=== PATIENT | female | born 1960 | race Caucasian/White ===

== ENCOUNTER 2024-06-23 15:45 | Outpatient (CLI) | payer MEDICAID ==
[2024-06-23 16:36] LABS: BASOPHILS % (AUTO) 0.5 % (0-1); EOSINOPHILS # (AUTO) 0.1 X10'3 (0-0.9); HEMATOCRIT 38.5 % (35.0-45.0); HEMOGLOBIN 13.3 g/dl (12.0-16.0); LYMPHOCYTES # (AUTO) 1.2 X10'3 (1.1-4.8); LYMPHOCYTES % (AUTO) 19.2 % (21-51); MEAN CORPUSCULAR HEMOGLOBIN 34.5 PG (27.0-31.0); MEAN CORPUSCULAR HGB CONC 34.4 g/dL (33.0-36.5); MEAN CORPUSCULAR VOLUME 100.2 FL (78-98); MEAN PLATELET VOLUME 9.1 FL (7.4-10.4); MONOCYTES # (AUTO) 0.3 X10'3 (0-0.9); MONOCYTES % (AUTO) 4.4 % (2-12); NEUTROPHILS # (AUTO) 4.7 X10'3 (1.8-7.7); NEUTROPHILS % (AUTO) 74.9 % (42-75); PLATELET COUNT 178 X10'3 (140-440); RED BLOOD COUNT 3.84 X10'6 (4.20-5.60); RED CELL DISTRIBUTION WIDTH 13.5 % (11.5-14.5); WHITE BLOOD COUNT 6.3 X10'3 (4.5-11.0)
[2024-06-23 16:38] LABS: BILIRUBIN,URINE NEGATIVE (Neg); CLARITY,URINE CLEAR (Clear); COLOR,URINE YELLOW (Yellow); GLUCOSE, URINE NEGATIVE (Neg); KETONES,URINE NEGATIVE (Neg); LEUKOCYTE ESTERASE ,URINE SMALL (Neg); NITRITES, URINE NEGATIVE (Neg); OCCULT BLOOD,URINE NEGATIVE (Neg); PH,URINE 5.5 (4.8-8.0); PROTEIN,URINE NEGATIVE (Neg); UROBILINOGEN,URINE 0.2 E.U/dL (0.2-1.0)
[2024-06-23 16:43] LABS: UA COLLECTION TYPE CONDOM CATH
[2024-06-23 16:45] LABS: BACTERIA,URINE FEW /HPF (Neg); RBC,URINE 0-2 /HPF (0-2); SQUAMOUS EPITHELIAL CELL,UR FEW /LPF (FEW); WBC CLUMPS,URINE FEW /HPF (NEGATIVE); WBC,URINE 20-30 /HPF (0-4)
[2024-06-23 17:04] LABS: ALANINE AMINOTRANSFERASE 24 U/L (12-78); ALBUMIN 4.3 G/DL (3.4-5.0); ALBUMIN/GLOBULIN RATIO 1.2 (1.1-1.5); ALKALINE PHOSPHATASE 124 IU/L (46-116); ANION GAP 7 (8-16); ASPARTATE AMINO TRANSFERASE 19 U/L (10-37); BILIRUBIN,TOTAL 0.3 MG/DL (0.1-1.0); BLOOD UREA NITROGEN 14 MG/DL (7-18); BUN/CREATININE RATIO 17.3 (10.0-20.0); CALCIUM 9.4 MG/DL (8.5-10.1); CHLORIDE 102 MMOL/L (99-107); CHOL/HDL RATIO 3.6 (0.00-4.99); CHOLESTEROL 205 MG/DL (0-200); CREATININE 0.81 MG/DL (0.40-0.90); FREE T4 (FREE THYROXINE) 1.07 NG/DL (0.73-1.40); GLUCOSE 88 MG/DL (70-104); HDL CHOLESTEROL 57 MG/DL (35-60); LDL CHOLESTEROL 112 MG/DL (50-100); POTASSIUM 3.7 MMOL/L (3.5-5.1); SODIUM 140 MMOL/L (135-145); THYROID STIMULATING HORMONE 1.12 ulU/ml (0.34-4.50); TOTAL CARBON DIOXIDE 31.2 MMOL/L (24-32); TOTAL PROTEIN 7.9 G/DL (6.4-8.2); TRIGLYCERIDES 116 MG/DL (20-135); eGFR 71 ML/MIN
[2024-06-24 11:46] LABS: OCCULT BLOOD STOOL NEGATIVE (Neg)
== END 2024-06-23 23:59 | disposition home or self-care (01) ==
LOC: RAD 15:45
PROVIDERS: ATTEND Nurse Practitioner Family
DX: E03.9 Hypothyroidism, unspecified (principal); E55.9 Vitamin D deficiency, unspecified; K58.2 Mixed irritable bowel syndrome; R42 Dizziness and giddiness
CPT/HCPCS: 36415; 80053; 80061; 81001; 82272; 82607; 83036; 84425; 84439; 84443; 85025; 85651; 87088

== ENCOUNTER 2024-11-17 15:33 | Outpatient (CLI) | payer MEDICAID ==
[2024-11-17 16:26] LABS: BASOPHILS # (AUTO) 0.1 X10'3 (0-0.2); EOSINOPHILS # (AUTO) 0.1 X10'3 (0-0.9); HEMATOCRIT 38.4 % (35.0-45.0); HEMOGLOBIN 13.1 g/dl (12.0-16.0); LYMPHOCYTES # (AUTO) 1.3 X10'3 (1.1-4.8); LYMPHOCYTES % (AUTO) 22.3 % (21-51); MEAN CORPUSCULAR HEMOGLOBIN 33.2 PG (27.0-31.0); MEAN CORPUSCULAR HGB CONC 34.1 g/dL (33.0-36.5); MEAN CORPUSCULAR VOLUME 97.4 FL (78-98); MEAN PLATELET VOLUME 9.5 FL (7.4-10.4); MONOCYTES # (AUTO) 0.3 X10'3 (0-0.9); MONOCYTES % (AUTO) 4.9 % (2-12); NEUTROPHILS # (AUTO) 4.2 X10'3 (1.8-7.7); NEUTROPHILS % (AUTO) 70.8 % (42-75); PLATELET COUNT 131 X10'3 (140-440); RED BLOOD COUNT 3.94 X10'6 (4.20-5.60); RED CELL DISTRIBUTION WIDTH 13.4 % (11.5-14.5); WHITE BLOOD COUNT 5.9 X10'3 (4.5-11.0)
[2024-11-17 16:32] LABS: BILIRUBIN,URINE NEGATIVE (Neg); CLARITY,URINE SLIGHTLY CLOUDY (Clear); COLOR,URINE YELLOW (Yellow); GLUCOSE, URINE NEGATIVE (Neg); KETONES,URINE NEGATIVE (Neg); LEUKOCYTE ESTERASE ,URINE SMALL (Neg); NITRITES, URINE NEGATIVE (Neg); OCCULT BLOOD,URINE NEGATIVE (Neg); PROTEIN,URINE NEGATIVE (Neg); UROBILINOGEN,URINE 0.2 E.U/dL (0.2-1.0)
[2024-11-17 16:33] LABS: UA COLLECTION TYPE CLN CATCH MIDSTREAM
[2024-11-17 16:47] LABS: ALANINE AMINOTRANSFERASE 26 U/L (12-78); ALBUMIN 4.2 G/DL (3.4-5.0); ALBUMIN/GLOBULIN RATIO 1.2 (1.1-1.5); ALKALINE PHOSPHATASE 118 IU/L (46-116); ANION GAP 8 (8-16); ASPARTATE AMINO TRANSFERASE 26 U/L (10-37); BILIRUBIN,TOTAL 0.3 MG/DL (0.1-1.0); BLOOD UREA NITROGEN 20 MG/DL (7-18); BUN/CREATININE RATIO 17.9 (10.0-20.0); CHLORIDE 100 MMOL/L (99-107); CHOL/HDL RATIO 3.7 (0.00-4.99); CHOLESTEROL 226 MG/DL (0-200); CREATININE 1.12 MG/DL (0.40-0.90); FREE T4 (FREE THYROXINE) 0.99 NG/DL (0.73-1.40); GLUCOSE 88 MG/DL (70-104); HDL CHOLESTEROL 61 MG/DL (35-60); LDL CHOLESTEROL 129 MG/DL (50-100); POTASSIUM 4.1 MMOL/L (3.5-5.1); SODIUM 137 MMOL/L (135-145); THYROID STIMULATING HORMONE 1.97 ulU/ml (0.34-4.50); TOTAL CARBON DIOXIDE 29.4 MMOL/L (24-32); TOTAL PROTEIN 7.8 G/DL (6.4-8.2); TRIGLYCERIDES 91 MG/DL (20-135); eGFR 49 ML/MIN
[2024-11-17 16:54] LABS: BACTERIA,URINE 1+ /HPF (Neg); RBC,URINE 0-2 /HPF (0-2); RENAL CELLS, URINE FEW /HPF; SQUAMOUS EPITHELIAL CELL,UR MODERATE /LPF (FEW); WBC CLUMPS,URINE FEW /HPF (NEGATIVE); YEAST FEW /HPF (NEGATIVE)
== END 2024-11-17 23:59 | disposition home or self-care (01) ==
LOC: LAB 15:33
PROVIDERS: ATTEND Nurse Practitioner Family
DX: E66.9 Obesity, unspecified (principal); E55.9 Vitamin D deficiency, unspecified; H54.3 Unqualified visual loss, both eyes; E03.9 Hypothyroidism, unspecified; K21.9 Gastro-esophageal reflux disease without esophagitis; K58.2 Mixed irritable bowel syndrome; M35.1 Other overlap syndromes; M54.17 Radiculopathy, lumbosacral region; M65.4 Radial styloid tenosynovitis [de Quervain]; N18.30 Chronic kidney disease, stage 3 unspecified; N39.0 Urinary tract infection, site not specified; E06.9 Thyroiditis, unspecified
CPT/HCPCS: 36415; 80053; 80061; 81001; 82306; 82607; 82746; 83036; 84439; 84443; 85025; 87088

== ENCOUNTER 2025-01-01 15:14 | Inpatient (IN) | payer MEDICAID ==
[~2025-01-01] VITALS: Ht 175.3 cm; Wt 63.6 kg
--- NOTE | 2025-01-01 15:23 | ELECTROCARDIOGRAPH REPORT ---
[facility] Test Date: 2025-01-01 Test Time: 15:19:48 Pat Name: ANDI KUMARI Department: EMERGENCY ROOM Room: ED 7 Gender: F Paper Grader: VEE : 1960 Requested By: MANAS RIVERA Order Number: [id number] Reading MD: Dr. Bhupinder Griffin Measurements Intervals [place] Rate: 89 P: 86 GA: 134 QRS: 75 QRSD: 79 T: 73 QT: 378 QTc: 460 Interpretive Statements Sinus rhythm Consider left ventricular hypertrophy Baseline wander in lead(s) V6 Electronically Signed On 01-01-2025 18:25:[address] Bhupinder Griffin Please click the below link to view image of tracing.
[2025-01-01 16:00] LABS: MEAN PLATELET VOLUME 9.6 FL (7.4-10.4); RED CELL DISTRIBUTION WIDTH 12.9 % (11.5-14.5)
--- NOTE | 2025-01-01 16:03 | RADIOLOGY REPORT ---
EXAM: DI CHEST,SINGLE VIEW TECHNIQUE: Single frontal chest radiograph CLINICAL HISTORY: CP COMPARISON: None Findings/Impression: Frontal chest radiograph demonstrates no acute osseous or superficial soft tissue abnormalities. Calc ified bilateral breast implants. The trachea is midline. The cardiac silhouette and mediastinum are within normal limits. No pneumothorax, pleural effusions, or consolidations.
[2025-01-01 16:21] LABS: CREATININE 1.30 MG/DL (0.40-0.90); PRO BRAIN NATRIURETIC PEPTIDE 165 PG/ML (0-125); TOTAL CARBON DIOXIDE 28.9 MMOL/L (24-32); eCRCL 45 ML/MIN; eGFR 41 ML/MIN
--- NOTE | 2025-01-01 16:23 | Physician Documentation ---
History of Present Illness ~ Chief Complaint: Chest Pain Stated Complaint: CP Time Seen by MD: 15:42 HPI History year old female presents today with a complaint of chest pain for the last four days for she states she started breath however she is describing her pain in 7-10 word without difficulty. States that the the pain is sharp in nature and is worse with inspiration.. Adds that the pain is worse with movement torsional. Said the pain is on the left side does not radiate or move Additional note by Jj Rivera, DO: I took over the care of this patient from previous physician. I reviewed any previous notes available, obtain my own history, review of systems and physical examination was performed by myself. This is a very pleasant 64-year-old female with a prior medical history of myocardial infarction, cardiac arrest, lupus, who comes in for evaluation of pleuritic left-sided chest pain radiating to her shoulder. Not certain if it is exertional. Not accompanied by shortness a breath. Did not attempt to treat it. Has been intermittently present for the last four days, and got progressively worse. She came in today because the pain was so bad that it finally scared her. Denies use of tobacco, alcohol or illicit substances. Day of Onset: Jan 01, 2025 Medication Reconciliation Allergies: Coded Allergies: Penicillins (Verified Allergy, Unknown, 01/01/25) erythromycin base (Verified Allergy, Unknown, 01/01/25) metronidazole (Verified Allergy, Unknown, 01/01/25) Review of Systems All Other Systems at this time: Reviewed and Negative ROS As stated above in the HPI, otherwise all systems are reviewed and negative. Physical Exam Vital Signs: Temperature: 98.5, Source: Temporal, Heart Rate: 70, Respiratory Rate: 10, BP: 110/73, Pulse Oximetry: 98, Weight: 63.640 Oxygen Flow Rate: 0 Physical Exam General: Alert, no apparent distress. HEENT: PERRL, EOMI, no injection, moist mucous membranes. Neck: Full range of motion. Respiratory: Lungs clear, no respiratory distress. Chest: No accessory muscle use. Cardiovascular: Regular rate and rhythm, no murmurs. Gastrointestinal: Soft, nontender, nondistended. Bowels sounds present. Extremities: Normal range of motion, no deformity. Neurologic: Oriented x4. Psychiatric: Normal mood and affect. Skin: Normal color, warm and dry. No edema, no ecchymosis. Progress Results/Orders Results/Orders Orders - JJ RIVERA DO Chest,Single View (01/01/25 15:21) Monitor (01/01/25 15:21) Saline Lock (01/01/25 15:21) Oxygen (01/01/25 15:21) Hs Troponin I W Calculations (01/01/25 17:21) Hs Troponin I W Calculations (01/01/25 18:21) Completed Orders - JJ RIVERA DO Chest,Single View (01/01/25 15:21) Cbc/Diff (01/01/25 15:21) BMP (01/01/25 15:21) PBNP (01/01/25 15:21) Electrocardiogram (01/01/25 15:21) Hs Troponin I W Calculations (01/01/25 15:21) Vital Signs 01/01/25 01/01/25 01/01/25 15:19 15:44 17:08 Temp 98.5 Pulse 102 70 Resp 18 10 10 B/P (MAP) 118/71 110/73 (85) Pulse Ox 98 98 O2 Flow Rate 0 Laboratory Tests Test 01/01/25 15:54 White Blood Count 6.3 Red Blood Count 3.70 L Hemoglobin 12.2 Hematocrit 35.9 Mean Corpuscular Volume 96.9 Mean Corpuscular Hemoglobin 33.1 H Mean Corpuscular Hemoglobin Concent 34.1 Red Cell Distribution Width 12.9 Platelet Count 123 L Mean Platelet Volume 9.6 Neutrophils (%) (Auto) 65.4 Lymphocytes (%) (Auto) 25.4 Monocytes (%) (Auto) 7.6 Eosinophils (%) (Auto) 1.0 Basophils (%) (Auto) 0.6 Neutrophils # (Auto) 4.1 Lymphocytes # (Auto) 1.6 Monocytes # (Auto) 0.5 Eosinophils # (Auto) 0.1 Basophils # (Auto) 0.0 CBC Comment Sodium Level 137 Potassium Level 3.7 Chloride Level 102 Carbon Dioxide Level 28.9 Anion Gap 6 L Blood Urea Nitrogen 22 H Creatinine 1.30 H Estimated GFR/1.73 m2 41 BUN/Creatinine Ratio 16.9 Glucose Level 98 Calcium Level 9.2 Troponin I High Sensitivity 5 Pro-B-Type Natriuretic Peptide 165 H Albumin 4.2 Chemistry Comments EKG/XRAY/CT/US/VASC/MRI EKG : Additional Comment EKG was obtained and interpreted by myself shows sinus rhythm of 89, normal AL interval, narrow QRS, no QT prolongation, normal axis, concern for LVH. No STEMI. T-wave inversion in aVL. Heart Score: Heart Score Response (Comments) Value History Slightly Suspicious 0 EKG Repolarization Disturb 1 Age 45-64 1 Risk Factors >3 or Hx ASHD 2 Troponin Normal limit 0 Total 4 Medical Decision Making Findings Facility Status: ED Holds, RME process The plan was discussed with the patient, who demonstrates clear understanding of the plan and is in agreement with the plan unless otherwise noted in the chart. All questions have been answered, all concerns were addressed unless otherwise documented. I was available throughout their ED stay for frequent reassessment and questions. Differential Diagnoses (considered and possible or likely): [Differential diagnosis considered includes chest wall pain, pleurisy, pneumonia, pulmonary embolus, GERD, esophagitis, gastritis, anxiety, stress reaction, costoc hondritis, acute coronary syndrome, aortic dissection, pericarditis, myocarditis, or pneumothorax.] ??Differential Diagnoses (considered and unlikely, not requiring evaluation currently): [Aortic/great vessels dissection was considered but it is unlikely based on absence of ripping, tearing, migratory chest pain, absence of syncope or focal neurologic deficits, physical examination indicating equal and symmetric pulses.] MDM Data Please see [facility] for the following: Independent Historians and external Records Review. Historian: [Patient] Independent Historians: ?[, record review] Medication Management: [Reviewed medication list] Social History and determinants: [Reviewed] Please see the body of the note for the following: Any independent interpretations of ECG, imaging studies. All vitals signs/haemodynamics, ordered tests were independently reviewed and interpreted by myself. Nursing triage complaint and vitals reviewed, additional nursing notes were reviewed as available and I agree unless otherwise noted or documented in contradiction in the chart Vital Signs: Independently reviewed Labs: Independently interpreted Imaging: Independently interpreted Old Medical Records: Independently reviewed, see [facility] for relevant summary and information Pulse Oximetry: [97%] interpreted as [normal on room air] by me [Hotel Dining Room Cashier: [Regular Rate, Regular rhythm, no ectopy, NSR] reviewed and interpreted by me] Additionally notably showing: [Hemodynamics reviewed. The patient has a initially tachycardic, not febrile, no evidence of respiratory distress or hypotension. CBC is normal. Slightly decreased platelet count noted. Does not require transfusion, no evidence of active bleeding. Chemistry notable for mild MIRA versus CKD. Slight elevation of BNP not meeting criteria for CHF exacerbation. Initial troponin is normal. Chest x-ray was obtained showing no acute cardiopulmonary process. Breast im plants noted.] Tests considered but not ordered include: [Stress test and echo can be done on an inpatient basis, patient has not had any cardiac workup in over two years] Social Determinants of Health Impact: Patient was evaluated in [facility], [facility] [place] to healthcare due to below par ratio of patient to medical providers. [] Comorbid Conditions Impacting Present Evaluation and Care/Treatment: [History of myocardial infarction and cardiac arrest] Management Discussions with other Healthcare Providers: [Hospitalist regarding admission] Treatment and Disposition Medication Management (Given or considered): []. See EMR for details Consideration for Hospitalization/Escalation/Deescalation of Care: Admission for observation has been considered, and appears to be necessary for further workup of her chest pain given her risk factors. ?ED Course:?[No clinical deterioration] ?Shared decision making:?[] Code status:?FULL Please see the full Electronic Medical Record for full details of nursing documentation, medications list, other records of complete past medical history and conditions, vital signs, laboratory studies, and any radiologic study interpretations by radiologists. Portions of this note were completed using [employer] dictation software and as a result there may exist minor errors in spelling. I have reviewed elements of past family and social history and agree as included in note. Differential Dx:Considerations: Include: angina, aortic dissection, chest wall pain, cholelithiasis, CHF, costochondritis, esophageal reflux/spasm, gastritis, herpes zoster, myocardial infarction, pericarditis, pleuritis, pancreatitis, pneumonia, pneumothorax, pulmonary embolus, other Departure Disposition: 09 ADMITTED INPATIENT Impression: Primary Impression: Acute chest pain Additional Impressions: History of lupus History of myocardial infarction History of cardiac arrest Condition: Stable Discharge Instructions: Nonspecific Chest Pain, Adult, Chest Wall Pain Referrals: NO PRIMARY CARE PROVIDER (PCP) Education Educated: Patient, Family Educated regarding: diagnosis, treatment, prognosis, need for follow up Signature Scribe Signature: No scribe Attestation: This note accurately reflects clinical decisions, work performed by myself, Jj Rivera, TONI WILLETT NP Jan 01, 2025 16:23 JJ RIVERA DO Jan 01, 2025 17:29
[2025-01-01] MEDS ORDERED: magnesium hydroxide 30ml (MOM) UD suspension PO PRN (18:40)
[2025-01-01] MEDS ORDERED: potassium Cl 40MEQ/1/2NS 520ml 520 ML IV PRN (18:40)
[2025-01-01] MEDS ORDERED: magnesium sulf-water 4G/100mL 100 ML IV PRN (18:40)
[2025-01-01] MEDS ORDERED: ondansetron/PF 4mg/2ml inj IV PRN (18:40)
[2025-01-01] MEDS ORDERED: magnesium Cl slow-release 64mg tablet PO PRN (18:40)
[2025-01-01] MEDS ORDERED: magnesium sulf-water 2g/50mL 50 ML IV PRN (18:40)
[2025-01-01] MEDS ORDERED: potassium Cl 20 mEq SR tablet PO PRN ×2 (18:40)
[2025-01-01] MEDS ORDERED: metoprolol tartrate 1mg/ml inj IV PRN (18:45)
[2025-01-01] MEDS ORDERED: aminophylline 250mg/10ml inj. IV PRN (18:45)
--- NOTE | 2025-01-01 19:03 | HISTORY AND PHYSICAL-Residence ---
History & Physical Providers to CC Resident Creating Document: SHANE HULL, SILVIA ~ History of Present Illness Reason for Admit\\Complaint: Anginal chest pain History of Present Illness 64-year-old female with past medical history of complete blindness, SLE, hypothyroidism, peripheral neuropathy, GERD, anxiety presented to the ED with chief complaints of worsening left-sided chest pain since the past four days. The patient reports that she has been having intermittent episode of chest pain that is mostly towards the left side of the chest, pressure type and radiating to the left shoulder and the left jaw. She reports that the chest pain increases with minimal exertion and mildly improves with rest. She denies complete resolution of the chest pain with the rest. The patient also reported that she has been having worsening of the symptoms and the duration of the symptoms has been progressively increasing. She stated that she also has a associated shortness of breaths, reports that she was initially able to walk for longer distances with her walker but since the past few days the patient has been having severe shortness of breaths even taking 50 steps with a walker. She also reported that she has been feeling that she has a generalized swelling in her legs, arms and all around her back since the past few days associated with the these chest pains. She complains of generalized body aches, tingling and numbness in all four of her extremities peripherally. PCP- CLAIRE Pedro, [place] [facility] Stitching Machine Feeder Or Offbearer-Dr. Carrion Code status-full code Allergies: Coded Allergies: Penicillins (Verified Allergy, Unknown, 01/01/25) erythromycin base (Verified Allergy, Unknown, 01/01/25) metronidazole (Verified Allergy, Unknown, 01/01/25) Past Medical History Past Medical History Complete blindness Easily Hypothyroidism Peripheral neuropathy GERD Anxiety "Heart attack" no stenting or intervention done in the past. Past Surgical History Surgical History Comment Multiple ophthalmology surgeries for recurrent glaucoma/uveitis. Family History Family History: FH: blindness Past Social History Social History Comment Lives at home with her boyfriend. Denies smoking Occasionally drinks alcohol. Denies recreational drug use ROS All Other Systems: Reviewed and Negative ROS CONSTITUTIONAL: Worsening generalized weakness. No weight loss or weight gain recently. EYES: Complete blindness, photosensitivity ENT: No sore throat, No epistaxis. No tinnitus. CARDIOVASCULAR: Anginal chest pain as described in the HPI RESPIRATORY: Shortness of breaths worsening with minimal exertion GASTROINTESTINAL: Normal appetite. No nausea, vomiting, diarrhea. No constipation. No hematemesis. No abdominal pain. No bloating. No melena or fresh blood. GENITOURINARY: No frequency, urgency, nocturia. No hematuria or dysuria. MUSCULOSKELETAL: Generalized significant arthralgias and myalgias. INTEGUMENTARY: no change in skin, hair, nails. No swelling. No bruising. No abrasions. NEUROLOGIC: Headaches associated with the chest pain. Tingling and numbness in all four extremities peripherally. PSYCHIATRIC: no delusions, no depression, no loss of interest in normal activity or change in sleep pattern, no hallucinations or suicidal ideations HEMATOLOGICAL: No bleeding. No petechiae. No bruising. Exam Vitals: Vital Signs Date Time Temp Pulse Resp B/P (MAP) Pulse Ox O2 Delivery O2 Flow Rate FiO2 01/01/25 17:45 78 12 116/68 (84) 98 01/01/25 15:19 98.5 0 General: General: Awake and Alert, no acute distress. HEENT: Completely blind, bilateral corneal opacities, Mucus Membranes moist. Neck: Supple without masses and tenderness. Resp: Unlabored. Lungs clear to auscultation bilaterally. Heart: Regular Rate and rhythm, normal S1 and S2 without murmur, rub or gallop. Abdomen: Soft and non tender no organomegaly Extremities: No cyanosis,clubbing or edema. Skin: Warm and Dry. Neurology: No other focal motor or sensory deficits. Diagnostic Data Last Recorded Lab Results: 01/01/25 1554 01/01/25 1554 Advance Care Planning Advanced Care planning: Add on additional 30 min Additional Plan Anginal chest pain Rule out ACS Heart score-low risk. EKG negative for any acute ST segment elevations. Troponin one high sensitivity-five, five. Third troponin pending. Chest [id number] for any acute findings. Telemetry monitoring to be done to check for any underlying arrhythmias. Patient took four tablets of aspirin 81 mg at home prior to coming to the hospital. She took nitroglycerin at home without significant improvement. We will do a Doris stress test tomorrow in the a.m.. We will follow up accordingly as per the Doris report. Follow up with the A1c, TSH. Follow up with the lipid panel. Follow up with the ECHO. Mild MIRA on CKD Started the patient on IV fluids. Monitor the patient's renal function test and manage accordingly. SLE Peripheral neuropathy Hypothyroidism Chronic pain Complete blindness GERD Anxiety Insomnia Awaiting med reconciliation. Restart home medications once med reconciliation is done and reviewed. CODE STATUS: Full code DVT prophylaxis: Heparin 5000 units subQ b.i.d. Diet: NPO after midnight. Disposition: The patient we will get a Doris stress test done tomorrow. Telemetry monitoring to be done. Admitting the patient for observation to rule out ACS. Shane Hull MD Internal Medicine Resident, PGY-2 Date of Service: Jan 01, 2025 Billing Provider: DESIREE THAO MD Common Visit Codes: 51704-[id number] INP/OBS CARE (HIGH) Secondary Visit Codes: 97286-[id number] CARE PLAN 30 MINUTES SHANE HULL, RES Jan 01, 2025 19:03 DESIREE THAO MD Jan 01, 2025 19:52
[2025-01-01] MEDS: normal saline 1000ml 1,000 ML IV SCH (19:19)
[2025-01-01 19:23] LABS: CHOL/HDL RATIO 3.2 (0.00-4.99); LDL CHOLESTEROL 121 MG/DL (50-100)
[2025-01-01] MEDS ORDERED: VALA500T41 PO (19:27)
[2025-01-01] MEDS ORDERED: PANT40TA54 PO (19:27)
[2025-01-01] MEDS ORDERED: FAMO20TA8 PO (19:27)
[2025-01-01] MEDS ORDERED: CLON0.5T4 PO (19:27)
[2025-01-01] MEDS ORDERED: DICY10CA88 PO (19:27)
[2025-01-01] MEDS ORDERED: ROSU10TA72 PO (19:27)
[2025-01-01] MEDS ORDERED: LEVO75TA7 PO (19:27)
[2025-01-01] MEDS ORDERED: GABA300T28 PO (19:27)
[2025-01-01] MEDS ORDERED: TRAZ-256 PO (19:27)
[2025-01-01] MEDS ORDERED: AZEL6DRO5 EACHEYE (19:28)
[2025-01-01] MEDS ORDERED: LORA10TA7 PO (19:29)
[2025-01-01] MEDS: docusate sod 100mg capsule PO SCH (20:00)
[2025-01-01 21:20] VITALS: BP 120/70; PULSE 97; RESP 17; TEMP 98.5; O2SAT 97
[2025-01-01] MEDS: K and/or MAG REPLACEMENT MC SCH (21:20)
[2025-01-01] MEDS: heparin, porcine 5000 units/ml vial SQ SCH (21:20)
[2025-01-02] VITALS (13 sets, daily range): BP systolic 93–130; BP diastolic 45–72; PULSE 63–92; RESP 15–16; TEMP 98–98.4; O2SAT 96–100
[2025-01-02 06:27] LABS: MEAN PLATELET VOLUME 9.9 FL (7.4-10.4); RED CELL DISTRIBUTION WIDTH 13.0 % (11.5-14.5)
[2025-01-02 07:05] LABS: CREATININE 0.87 MG/DL (0.40-0.90); TOTAL CARBON DIOXIDE 27.2 MMOL/L (24-32); eCRCL 66 ML/MIN; eGFR 66 ML/MIN
--- NOTE | 2025-01-02 08:58 | ELECTROCARDIOGRAPH REPORT ---
[facility] Test Date: 2025-01-01 Test Time: 17:56:31 Pat Name: ANDI KUMARI Department: EMERGENCY ROOM Room: [facility] [address] Gender: F Research Group Director: VEE : 1960 Requested By: DEPARTMENT EMERGENCY Order Number: [id number] Reading MD: Dr. Bhupinder Griffin Measurements Intervals [place] Rate: 83 P: 0 [place]: 0 QRS: 67 QRSD: 90 T: 67 QT: 404 QTc: 475 Interpretive Statements Atrial fibrillation Electronically Signed On 01-02-2025 19:43:[address] Bhupinder Griffin Please click the below link to view image of tracing.
[2025-01-02] MEDS: regadenoson 0.4mg/5ml syringe IV PRN (10:47)
[2025-01-02] MEDS: pantoprazole 40mg Tablet.DR PO SCH (11:52)
--- NOTE | 2025-01-02 13:09 | RADIOLOGY REPORT ---
EXAM: NM NM RITU SCAN History: Anginal chest pain Comparison Study: DI CHEST,SINGLE VIEW on DOS: 01/01/25 TECHNIQUE: Resting myocardial perfusion imaging was performed approximately 30 minutes following the injection of 8.28 mCi of Tc-99m sestamibi. Peak pharmacologic stress, the patient was injected with 3 3.04 mCi of Tc-99m sestamibi. Gated post stress images were acquired in the supine and prone position s approximately 30 minutes after stress and left ventricular ejection fraction (LVEF) was calculated. Findings: The overall quality of the study is adequate. The left ventricular cavity is noted to be normal. There is no evidence of abnormal lung activity. Additionally, the right ventricle appears normal. Myocardial perfusion images demonstrate homogeneous tracer distribution throughout the myocardium wit h no scintigraphic evidence of myocardial ischemia or necrosis/scar. Gated imaging reveals normal thickening and wall motion with a calculated LVEF of 71 % with end-diast olic volume of 47 mL at stress. Impression: 1. No evidence of ischemia or scar. 2. Overall gated left ventricular systolic function was normal with calculated LVEF of 71 % at stress . 3. No left ventricular dilatation.
[2025-01-02] MEDS: mag hydrox/Alum hydrox/simeth 30ml oral suspension PO PRN (13:42)
--- NOTE | 2025-01-02 16:39 | PROGRESS NOTE- Residence ---
Progress Note - Resident Providers to CC Resident Creating Document: WINNIE BYRNES, RES ~ Antibiotic Timeout Antibiotic Ordered?: No Subjective The patient was seen and examined at bedside today. She underwent lexiscan this morning and it resulted negative. No acute events overnight or no new symptoms. Objective Vital Signs Date Time Temp Pulse Resp B/P (MAP) Pulse Ox O2 Delivery O2 Flow Rate FiO2 01/02/25 15:00 98.0 71 15 98/57 (71) 97 Room Air 01/02/25 10:57 0.0 Result Diagram: 01/02/25 0540 01/02/25 0540 General: Awake and Alert, no acute distress. HEENT: Completely blind, bilateral corneal opacities, Mucus Membranes moist. Neck: Supple without masses and tenderness. Resp: Unlabored. Lungs clear to auscultation bilaterally. Heart: Regular Rate and rhythm, normal S1 and S2 without murmur, rub or gallop. Abdomen: Soft and non tender no organomegaly Extremities: No cyanosis,clubbing or edema. Skin: Warm and Dry. Neurology: No other focal motor or sensory deficits. Plan Plan Chest pain ACS ruled out Likely musculoskeletal pain Heart score-low risk. Lexiscan negative. Echocardiogram preliminary reports did not show any acute abnormalities except for moderate MR. LDL 121. She takes rosuvastatin 10 mg daily. Consider increasing it to 20 mg at discharge. EKG negative for any acute ST segment elevations. Serial troponins within normal limits. Chest u-[id number]-[id number] for any acute findings. Telemetry monitoring to be done to check for any underlying arrhythmias. Continue follow up with outpatient presentation team member, Dr. Carrion. MIRA likely secondary to vasomotor nephropathy, resolved Continue IV fluids. Continue monitoring BMP. SLE Peripheral neuropathy Hypothyroidism Chronic pain Complete blindness GERD Anxiety Insomnia Continue home medications. Continue outpatient follow up. CODE STATUS: Full code DVT prophylaxis: Heparin 5000 units subQ b.i.d. Diet: Heart healthy diet Disposition: Continue care in PCU. Anticipate discharge in the next 24 hours. Winnie Byrnes MD Internal Medicine Resident, PGY-2 Date of Service: Jan 02, 2025 Billing Provider: SKYE JAMES MD, SOWMYA MANJARI, SILVIA Jan 02, 2025 16:39
[2025-01-03 02:00] VITALS: BP 104/47; PULSE 77; RESP 15; TEMP 98.7; O2SAT 94
[2025-01-03 06:06] LABS: MEAN PLATELET VOLUME 9.6 FL (7.4-10.4); RED CELL DISTRIBUTION WIDTH 12.7 % (11.5-14.5)
[2025-01-03 06:32] LABS: CREATININE 0.96 MG/DL (0.40-0.90); TOTAL CARBON DIOXIDE 25.7 MMOL/L (24-32); eCRCL 60 ML/MIN; eGFR 59 ML/MIN
[2025-01-03 07:00] VITALS: BP 108/50; PULSE 65; RESP 16; TEMP 98.6; O2SAT 96
[2025-01-03 08:00] VITALS: RESP 16; O2SAT 100
[2025-01-03] MEDS: levoTHYROXINE 75mcg tablet PO SCH (09:17)
[2025-01-03 11:00] VITALS: BP 108/57; PULSE 83; RESP 16; TEMP 98.5; O2SAT 96
[2025-01-03] MEDS ORDERED: ROSU10TA72 PO (12:29)
[2025-01-03] MEDS ORDERED: CYCL-920 PO (12:29)
--- NOTE | 2025-01-03 17:01 | DISCHARGE SUMMARY-Residence ---
Discharge Summary Providers to CC Resident Creating Document: MG BYRNES, RES ~ Discharge Summary Admission Diagnosis: Anginal chest pain, Rule out ACS Hospital Course DATE OF ADMISSION: 01/01/2025 DATE OF DISCHARGE: 01/03/2025 Imaging: X-ray chest 01/01/2025: Frontal chest radiograph demonstrates no acute osseous or superficial soft tissue abnormalities. Calcified bilateral breast implants. The trachea is midline. The cardiac silhouette and mediastinum are within normal limits. No pneumothorax, pleural effusions, or consolidations. Echocardiogram 01/02/2025: Overall LVEF is about 60%. Normal LV size and wall thickness. Overall systolic function is normal. RV is normal size and function. Estimated PA systolic pressure of 30 mm of me rcury. Trileaflet AV appears normal without stenosis. No insufficiency. Mild MV annular calcification without stenosis. Moderate regurgitation. TV appears structurally normal with trace regurgitation. Normal pericardium. No effusion. Lexiscan 01/02/2025: 1. No evidence of ischemia or scar. 2. Overall gated left ventricular systolic function was normal with calculated LVEF of 71 % at stress. 3. No left ventricular dilatation. Discharge Diagnosis\Comment: Chest pain ACS ruled out Likely musculoskeletal pain MIRA likely secondary to vasomotor nephropathy, resolved SLE Peripheral neuropathy Hypothyroidism Chronic pain Complete blindness GERD Anxiety Insomnia Operations\Procedures: None Consultants: None Complications: None Condition on DC: Stable New Medications: Cyclobenzaprine HCl (Cyclobenzaprine HCl) 5 Mg Tablet 1 TAB PO TID PRN PRN for muscle spasms for 5 Days, #5 TAB 0 Refills Changed Medications: Rosuvastatin Calcium (Rosuvastatin Calcium) 10 Mg Tablet 2 TAB PO HS for 30 Days, #60 TAB (Changed from: 1 TAB) Continued Medications: Azelastine HCl (Azelastine HCl) 0.05 % Drops EACHEYE PRN for allergies Clonazepam (Clonazepam) 0.5 Mg Tablet 1 TAB PO BID Dicyclomine Hcl* (Bentyl*) 10 Mg Capsule 1 CAP PO TID Famotidine (Famotidine) 20 Mg Tablet 1 TAB PO BID Gabapentin (Gabapentin ER) 300 Mg Tab.er.24h 600 MG PO TID Levothyroxine Sodium (Levothyroxine Sodium) 75 Mcg Tablet 1 TAB PO DAILY Loratadine (Loratadine) 10 Mg Tablet 1 TAB PO PRN for allergies for 30 Days, #30 TAB 0 Refills Pantoprazole Sodium (Pantoprazole Sodium) 40 Mg Tablet. 1 TAB PO DAILY Trazodone HCl (Trazodone HCl) 100 Mg Tablet 3 TAB PO HS Valacyclovir HCl (Valacyclovir) 500 Mg Tablet 1 TAB PO DAILY Discharge Summary: History of present illness by admitting physician: A 64-year-old female with past medical history of complete blindness, SLE, hypothyroidism, peripheral neuropathy, GERD, anxiety presented to the ED with chief complaints of worsening left-sided chest pain since the past four days. The patient reports that she has been having intermittent episode of chest pain that is mostly towards the left side of the chest, pressure type and radiating to the left shoulder and the left jaw. She reports that the chest pain increases with minimal exertion and mildly improves with rest. She denies complete resolution of the chest pain with the rest. The patient also reported that she has been having worsening of the symptoms and the duration of the symptoms has been progressively increasing. She stated that she also has a associated shortness of breaths, reports that she was initially able to walk for longer distances with her walker but since the past few days the patient has been having severe shortness of breaths even taking 50 steps with a walker. She also reported that she has been feeling that she has a generalized swelling in her legs, arms and all around her back since the past few days associated with the these chest pains. She complains of generalized body aches, tingling and numbness in all four of her extremities peripherally. Course in the hospital: On evaluation in the ED, the EKG was negative for any acute ST changes. Serial troponins were within normal limits. X-ray did not show any cardiopulmonary abnormalities. Patient received aspirin 325 mg and nitroglycerin without any improvement of chest pain. She underwent Lexiscan the next day which resulted normal. She reported that she had history of lifting heavy weights recently and thinks that she pulled her muscle probably. On the day of discharge, the patient was stable and had no new complaints. She is being discharged home on muscle relaxants. Her LDL was 121 and she required increase in dose of her rosuvastatin. Advice at discharge: Follow up with PCP in one week. Please review with PCP for possible autoimmune disease flare up and the requirement of steroids. The cause of your chest pain is most likely musculoskeletal. Try using flexeril (muscle relaxant) to see if it improves the pain. We have increased the dose of your crestor (rosuvastatin) from 10 mg daily to 20 mg daily. Repeat lipid panel in 4-6 weeks through your PCP. In the event of worsening of symptoms, call 911 or go to the ER immediately. Examination at discharge: General: Awake and Alert, no acute distress. HEENT: Completely blind, bilateral corneal opacities, Mucus Membranes moist. Neck: Supple without masses and tenderness. Resp: Unlabored. Lungs clear to auscultation bilaterally. Heart: Regular Rate and rhythm, normal S1 and S2 without murmur, rub or gallop. Abdomen: Soft and non tender no organomegaly Extremities: No cyanosis,clubbing or edema. Skin: Warm and Dry. Neurology: No other focal motor or sensory deficits. Vital Signs Date Time Temp Pulse Resp B/P (MAP) Pulse Ox O2 Delivery O2 Flow Rate FiO2 01/03/25 11:00 98.5 83 16 108/57 (74) 96 Room Air 01/02/25 10:57 0.0 Laboratory Tests Test 01/01/25 17:33 01/01/25 18:21 01/02/25 05:40 01/03/25 05:51 Troponin I High Sensitivity 5 ng/L 4 ng/L Troponin I High Sens Percent Delta 0 % 20 % Troponin I Hi Sens Absolute Change 0 ng/L -1 ng/L White Blood Count 4.0 X10'3 8.0 X10'3 Red Blood Count 3.49 X10'6 3.69 X10'6 Hemoglobin 11.5 g/dl 12.3 g/dl Hematocrit 34.2 % 36.1 % Mean Corpuscular Volume 98.0 FL 97.8 FL Mean Corpuscular Hemoglobin 32.9 PG 33.4 PG Mean Corpuscular Hemoglobin Concent 33.6 g/dL 34.1 g/dL Red Cell Distribution Width 13.0 % 12.7 % Platelet Count 116 X10'3 125 X10'3 Mean Platelet Volume 9.9 FL 9.6 FL Neutrophils (%) (Auto) 46.9 % 73.1 % Lymphocytes (%) (Auto) 40.4 % 21.0 % Monocytes (%) (Auto) 9.1 % 3.8 % Eosinophils (%) (Auto) 2.7 % 1.2 % Basophils (%) (Auto) 0.9 % 0.9 % Neutrophils # (Auto) 1.9 X10'3 5.8 X10'3 Lymphocytes # (Auto) 1.6 X10'3 1.7 X10'3 Monocytes # (Auto) 0.4 X10'3 0.3 X10'3 Eosinophils # (Auto) 0.1 X10'3 0.1 X10'3 Basophils # (Auto) 0.0 X10'3 0.1 X10'3 CBC Comment Sodium Level 142 MMOL/L 143 MMOL/L Potassium Level 3.8 MMOL/L 3.5 MMOL/L Chloride Level 108 MMOL/L 109 MMOL/L Carbon Dioxide Level 27.2 MMOL/L 25.7 MMOL/L Anion Gap 7 8 Blood Urea Nitrogen 14 MG/DL 7 MG/DL Creatinine 0.87 MG/DL 0.96 MG/DL Estimated GFR/1.73 m2 66 ML/MIN 59 ML/MIN BUN/Creatinine Ratio 16.1 7.3 Glucose Level 86 MG/DL 95 MG/DL Calcium Level 8.2 MG/DL 8.5 MG/DL Magnesium Level 2.1 MG/DL 2.1 MG/DL Total Bilirubin 0.3 MG/DL 0.3 MG/DL Aspartate Amino Transf (AST/SGOT) 19 U/L 21 U/L Alanine Aminotransferase (ALT/SGPT) 20 U/L 19 U/L Alkaline Phosphatase 72 IU/L 90 IU/L Total Protein 6.3 G/DL 6.9 G/DL Albumin 3.4 G/DL 3.6 G/DL Globulin 2.9 G/DL 3.3 G/DL Albumin/Globulin Ratio 1.2 1.1 Chemistry Comments *Problems/Diagnosis: (1) Chest wall pain Status: Acute Total Time Spent on D/C: > 30 Minutes Date of Service: Jan 03, 2025 Billing Provider: SKYE JAMES MD, SOWMYA MANJARI, RES Jan 03, 2025 17:01
--- NOTE | 2025-01-03 17:19 | CARDIOLOGY REPORT ---
APPROVED REPORT EXAM: Comprehensive 2D, Doppler, and color-flow Echocardiogram. Patient Location: [address] Heart Rate: 60's bpm Rhythm: SINUS Indications CHEST PAIN Executive Vice President Of Sales: Kandy GOMES MD Previous echo: NONE AVAILABLE (AFTER HOURS) 2D Dimensions RVDd 2.7 cm LA Diam3.5 cm IVSd 0.8 (0.7-1.1cm) LVDd 4.5 cm PWd 0.8 (0.7-1.1cm) IVSs 0.9 (0.8-1.2cm) LVDs 3.3 (2.5-4.0cm) PWs 1.2 (0.8-1.2cm) LVOT Diameter 2.00 (1.8-2.4cm) LVEF(%) 51.2 (>50%) IVC 20.00 mmFS (%) 26.0 % SV 46.4 ml CO 2.9 L/min M-Mode Dimensions Aortic Root 2.35 (2.2-3.7cm) Aortic Cusp Exc 1.76 (1.5-2.0cm) Aortic Valve AoV Peak Alejandro. 121.1 cm/s AoV VTI 28.4 cm AO Peak GR. 5.9 mmHg AO Mean GR. 3 mmHg LVOT VTI 22.40 cm LVOT Peak Alejandro. 92.7 cm/s ROSANA(VTI)/BSA 2.48 cm2/m2 ROSANA (VTI) 2.48 cm2 Mitral Valve MV E Velocity 90.4 cm/s MV Peak Gr. 4 mmHg MV DECEL TIME 196 ms MV A Velocity 80.5 cm/s MV PHT 68 ms E/A Ratio 1.1 MVA (PHT) 3.24 cm2 MV KAmr757.3 cm/s TDI Lateral E' P. V8.37 cm/s E/Lateral E' 10.8 Tricuspid Valve TR P. Velocity 223 cm/s RAP ESTIMATE 10 mmHg TR Peak Gr. 20 mmHg RVSP 30 mmHg Pulmonary Vein S1 Velocity 58.4 cm/s D2 Velocity 45.6 cm/s PVa [id number] cm/s PVa [id number] msec LEFT VENTRICLE Normal LV size and wall thickness. Overall systolic function is normal. Overall LVEF is about 60%. RIGHT VENTRICLE RV is normal size and function. Estimated PA systolic pressure of 30 mm of mercury. ATRIA The left atrium size is normal. AORTIC VALVE Trileaflet AV appears normal without stenosis. No insufficiency. MITRAL VALVE Mild MV annular calcification without stenosis. Moderate regurgitation. TRICUSPID VALVE TV appears structurally normal with trace regurgitation. PULMONIC VALVE Normal PV without stenosis, physiologic insufficiency. GREAT VESSELS The aortic root is normal in size. IVC is normal in size and collapses less than 50% with inspiration . PERICARDIUM Normal pericardium. No effusion. Other Information Study Quality: Adequate Conclusion Overall LVEF is about 60%. Normal LV size and wall thickness. Overall systolic function is normal. RV is normal size and function. Estimated PA systolic pressure of 30 mm of mercury. Trileaflet AV appears normal without stenosis. No insufficiency. Mild MV annular calcification without stenosis. Moderate regurgitation. TV appears structurally normal with trace regurgitation. Normal pericardium. No effusion.
== END 2025-01-03 14:45 | disposition home or self-care (01) | DRG 198 ==
LOC: ER 15:15 → ED HOLD 17:58 → UNDOADMIN 17:58 → ED HOLD 18:39 → PCU 3S 20:57 → ED HOLD 20:57 → UNDOADMIN 01-02 08:32 → PCU 3S 01-02 08:32 → ED HOLD 01-02 08:32
PROVIDERS: ADMIT Internal Medicine; ATTEND Internal Medicine
PROC: 4A02XM4 Measurement of Cardiac Total Activity, External Approach (ICD-10-PCS; principal; 2025-01-02)
PROC: 3E033HZ Introduction of Radioactive Substance into Peripheral Vein, Percutaneous Approach (ICD-10-PCS; 2025-01-02)
DX: R07.89 Other chest pain (principal); I25.2 Old myocardial infarction; N17.0 Acute kidney failure with tubular necrosis; M32.8 Other forms of systemic lupus erythematosus; E03.9 Hypothyroidism, unspecified; F41.9 Anxiety disorder, unspecified; K21.9 Gastro-esophageal reflux disease without esophagitis; G47.00 Insomnia, unspecified; N18.9 Chronic kidney disease, unspecified; G62.89 Other specified polyneuropathies; Z88.0 Allergy status to penicillin; Z88.1 Allergy status to other antibiotic agents
CPT/HCPCS: 36415; 71045; 78452; 80048; 80053; 80061; 83735; 83880; 84443; 84484; 85025; 87081; 93005; 93017; 93306; 99285; A9500; G0378; J1644; J2785; J7030

== ENCOUNTER 2025-01-12 12:46 | Outpatient (CLI) | payer MEDICAID ==
[~2025-01-12 12:46] MED LIST: AZEL6DRO5 EACHEYE; CLON0.5T4 PO; CYCL-920 PO; DICY10CA88 PO; FAMO20TA8 PO; GABA300T28 PO; LEVO75TA7 PO; LORA10TA7 PO; PANT40TA54 PO; ROSU10TA72 PO; TRAZ-256 PO; VALA500T41 PO
[2025-01-12 13:38] LABS: MEAN PLATELET VOLUME 9.9 FL (7.4-10.4); RED CELL DISTRIBUTION WIDTH 13.0 % (11.5-14.5)
[2025-01-12 13:41] LABS: LEUKOCYTE ESTERASE ,URINE MODERATE (Neg); NITRITES, URINE NEGATIVE (Neg); OCCULT BLOOD,URINE NEGATIVE (Neg)
[2025-01-12 13:44] LABS: UA COLLECTION TYPE CLN CATCH MIDSTREAM
[2025-01-12 13:46] LABS: SQUAMOUS EPITHELIAL CELL,UR MODERATE /LPF (FEW)
[2025-01-12 13:47] LABS: YEAST FEW /HPF (NEGATIVE)
[2025-01-12 14:05] LABS: TOTAL CARBON DIOXIDE 31.1 MMOL/L (24-32)
--- NOTE | 2025-01-12 14:22 | RADIOLOGY REPORT ---
INDICATION: LOW BACK PAIN COMPARISON: None TECHNIQUE: 3 views of the lumbar spine were obtained. FINDINGS/IMPRESSION: The lumbar vertebral alignment is normal. There is a vertebral compression fracture of the L1 vertebral body with less than 10% loss of vertebr al body height.
[2025-01-12 15:08] LABS: CHOL/HDL RATIO 3.5 (0.00-4.99); CREATININE 1.03 MG/DL (0.40-0.90); LDL CHOLESTEROL 106 MG/DL (50-100); eGFR 54 ML/MIN
== END 2025-01-12 23:59 | disposition home or self-care (01) ==
LOC: RAD 12:46
PROVIDERS: ATTEND Emergency Medicine Emergency Medical Services
DX: S32.010A Wedge compression fracture of first lumbar vertebra, initial encounter for closed fracture (principal); N39.0 Urinary tract infection, site not specified; M54.17 Radiculopathy, lumbosacral region; X58.XXXA Exposure to other specified factors, initial encounter; Y93.89 Activity, other specified; Y92.89 Other specified places as the place of occurrence of the external cause; Y99.8 Other external cause status
CPT/HCPCS: 36415; 72100; 80053; 80061; 81001; 82306; 82607; 82746; 84439; 84443; 85025; 87088